=== PATIENT | female | born 1995 | race American Indian/Alaskan Native ===

== ENCOUNTER 2019-11-28 14:08 | Outpatient (CLI) | payer OTHER | END 2019-11-28 14:57 | disposition left against medical advice (07) | LOC: OBS/DEL 14:08 | DX: O26.893 Other specified pregnancy related conditions, third trimester (principal); R10.2 Pelvic and perineal pain ==

== ENCOUNTER 2019-12-05 12:12 | Inpatient (IN) | payer OTHER ==
[~2019-12-05] VITALS: Ht 165.1 cm; Wt 81.6 kg
[2020-01-13] MEDS ORDERED: PRENATAL TABLE1 EACH PO (06:40)
[2020-01-13] MEDS ORDERED: DIALYVITE 800-1 EACH PO (06:41)
[2020-01-15] MEDS ORDERED: OMEPRAZOLE40 MG PO (14:29)
[2020-01-15] MEDS ORDERED: IRON325 MG PO (14:30)
== END 2020-01-16 11:12 | disposition home or self-care (01) | DRG 788 ==
LOC: SURG 01-06 13:15 → LDR 01-11 13:15 → OB/GYN 01-13 05:31
PROVIDERS: ADMIT Obstetrics & Gynecology
PROC: 10907ZC Drainage of Amniotic Fluid, Therapeutic from Products of Conception, Via Natural or Artificial Opening (ICD-10-PCS; 2020-01-13)
PROC: 3E0P7VZ Introduction of Hormone into Female Reproductive, Via Natural or Artificial Opening (ICD-10-PCS; 2020-01-13)
PROC: 3E033VJ Introduction of Other Hormone into Peripheral Vein, Percutaneous Approach (ICD-10-PCS; 2020-01-13)
PROC: 4A1HXCZ Monitoring of Products of Conception, Cardiac Rate, External Approach (ICD-10-PCS; 2020-01-13)
PROC: 10D00Z1 Extraction of Products of Conception, Low, Open Approach (ICD-10-PCS; principal; 2020-01-13 17:00)
DX: O61.0 Failed medical induction of labor (principal); Z3A.40 40 weeks gestation of pregnancy; Z37.0 Single live birth; O99.824 Streptococcus B carrier state complicating childbirth